=== PATIENT | male | born 1995 | race Caucasian/White ===

== ENCOUNTER 2022-07-29 09:54 | Outpatient (CLI) | payer BC, SELFPAY ==
[2022-07-29 11:37] LABS: Albumin* 4.9 g/dL (3.3-5.0); Chloride* 102 mmol/L (96-114)
[2022-07-29 11:38] LABS: Potassium* 4.7 mmol/L (3.6-5.1); Sodium* 139 mmol/L (135-149)
[2022-07-29 11:40] LABS: Aspartate Amino Transferase* 28 U/L (12-35); Bilirubin Total* 0.7 mg/dL (0.1-1.5); Blood Urea Nitrogen* 12 mg/dL (5-24); Carbon Dioxide* 28 mmol/L (20-32); Cholesterol* 215 mg/dL (90-199); Estimated Glomerular Filt Rate 107 ml/min; Glucose* 89 mg/dL (60-115); Total Protein* 7.6 g/dL (6.0-8.3)
[2022-07-29 11:41] LABS: Alanine Aminotransferase* 27 U/L (4-50); Alkaline Phosphatase* 52 U/L (40-150); Calcium* 9.5 mg/dL (8.4-10.6); HDL Cholesterol* 47 mg/dL (>=40); LDL Cholesterol Calculated 143 mg/dL (<100); Triglycerides* 126 mg/dL (40-149)
== END 2022-07-29 09:55 | disposition home or self-care (01) ==
PROVIDERS: PCP Internal Medicine; Visit Provider Internal Medicine
DX: Z00.00 Encounter for general adult medical examination without abnormal findings (principal); Z13.6 Encounter for screening for cardiovascular disorders
CPT/HCPCS: 80053; 80061